=== PATIENT | male | born 1965 | race Caucasian/White ===

== ENCOUNTER 2017-03-22 09:57 | Day surgery (SDC) | payer BC ==
[2017-03-21 11:47] VITALS: BMI 30.2
[2017-03-22] MEDS ORDERED: MIDAZOLAM HCL 2 MG/2 ML SINGLE DOSE VIAL ONE (10:44)
[2017-03-22] MEDS ORDERED: LIDOCAINE HCL/PF 2% SDV 5ML VIAL ONE (10:44)
[2017-03-22] MEDS ORDERED: PROPOFOL 20 ML ONE (10:44)
[2017-03-22] MEDS ORDERED: DEXAMETHASONE SOD PHOSPHATE 4 MG/1 ML VIAL ONE ×2 (11:14→11:51)
[2017-03-22] MEDS ORDERED: ceFAZolin SODIUM 1 GM VIAL IVPB ONE (11:18)
[2017-03-22] MEDS ORDERED: ceFAZolin SODIUM 1 GM VIAL ONE (11:18)
[2017-03-22] MEDS ORDERED: IOHEXOL 300 MG/ML INFUS..BTL IV ONE (11:30)
[2017-03-22] MEDS ORDERED: oxyCODONE HCL 5 MG TABLET PO PRN (12:06)
[2017-03-22] MEDS ORDERED: PROMETHAZINE HCL 25 MG/1 ML VIAL IVPUSH PRN (12:06)
[2017-03-22] MEDS ORDERED: ACETAMINOPHEN 1000 MG/100 ML VIAL (NON FORMULARY) IVPB ONE (12:07)
[2017-03-22] MEDS ORDERED: KETOROLAC TROMETHAMINE 30 MG/1 ML VIAL IVPUSH ONE (12:07)
--- NOTE | 2017-03-22 12:09 | OP ---
Operative Note - Note: Operative Date: 03/22/17 Pre-Operative Diagnosis: R/O renal pelvic tumor Operation: Left ureteroscopy Renal pelvic biopsy stent placement Findings: Left renal pelvic TCC Post-Operative Diagnosis: Same as Pre-op Surgeon: Garry Murrieta MD. Anesthesia: General Specimens Removed: Left renal pelvic biopsy Estimated Blood Loss (mls): 10 Drains & Tubes with Location: 22 cm 6 fr DJ stent Operative Report Dictated: Yes
[2017-03-22] MEDS ORDERED: LACTATED RINGERS SOLUTION 1,000 ML IV SCH (12:15)
[2017-03-22] MEDS ORDERED: oxyCODONE HCL 5 MG TABLET ONE (13:38)
[2017-03-22 18:10] VITALS: BP 122/85; PULSE 68; TEMP 97.8
--- NOTE | 2017-03-24 14:15 | PATH ---
Surgical Pathology Report Patient Name: DORY GLASS Med. Rec. #: [id number] /Age/Gender: 1965 (Age: 51) / M Account: [id number] Location: [facility] Taken: 03/22/2017 Received: 03/22/2017 Reported: 03/24/2017 Physicians: Garry Murrieta M.D. Specimen(s) Received LEFT RENAL PELVIS BIOPSY Clinical History Rule out left ureteral tumor/bladder tumor Final Diagnosis RENAL PELVIS, LEFT, BIOPSIES: HYPERPLASTIC UROTHELIAL MUCOSA (SEE COMMENT). Comment: [facility] [place] [place] [place] ([id number] and interpreted at [facility] show following: The urothelium is diffusely positive for CD44 immunostain and negative for CK20; p53 shows weak nonspecific staining; Ki67 proliferation rate is low. 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 Clinical correlations and follow up are suggested. Also refer to [id number]. Electronically Signed Blake Guo M.D. Gross Description Received in formalin, labeled "left renal pelvis biopsies" are two grande, irregular portions of soft tissue measuring 0.1 cm in aggregate dimension. The specimen is submitted in toto in one cassette. [facility]/03/22/2017 [facility]03/22/2017
--- NOTE | 2017-03-24 14:16 | PATH ---
Cytology Non-Gynecological Report Patient Name: DORY GLASS [facility]. Rec. #: [id number] /Age/Gender: 1965 (Age: 51) / M Account: [id number] Location: [facility] Taken: 03/22/2017 Received: 03/22/2017 Reported: 03/24/2017 Physicians: Garry Murrieta M.D. Specimen(s) Received BLADDER URINE Clinical History Rule out left ureteral tumor/ bladder tumor Final Diagnosis BLADDER URINE FOR CYTOLOGY: SATISFACTORY FOR EVALUATION. NO MALIGNANT CELLS IDENTIFIED. REACTIVE UROTHELIAL CELLS WITH DEGENERATION. INFLAMMATORY CELLS. RED BLOOD CELLS. Electronically Signed Blake Guo M.D. Gross Description Received is 50 cc of yellow-brown fluid fresh. Two cytofunnel slides are made.
--- NOTE | 2017-03-24 14:16 | PATH ---
Cytology Non-Gynecological Report Patient Name: DORY GLASS [facility]. Rec. #: [id number] /Age/Gender: 1965 (Age: 51) / M Account: [id number] Location: [facility] Taken: 03/22/2017 Received: 03/22/2017 Reported: 03/24/2017 Physicians: Garry Murrieta M.D. Specimen(s) Received LEFT RENAL WASHINGS Clinical History Rule out left ureter tumor/bladder tumor Final Diagnosis LEFT RENAL WASHINGS: SATISFACTORY FOR EVALUATION. CLUSTERS OF UROTHELIAL CELLS PRESENT. NUMEROUS RED BLOOD CELLS. Comment: Clusters of urothelial cells may be seen as a result of inflammation, instrumentation, stones and low grade urothelial carcinoma. No significant cytological atypia is seen. Clinical correlations and follow up are suggested. Also refer to [id number]. Electronically Signed Blake Guo M.D. Gross Description Received is 10 cc of reddish fluid fresh. Two cytofunnel slides are made.
--- NOTE | 2017-03-24 14:27 | OP ---
DATE OF OPERATION: 03/22/2017 HISTORY: This is a 51-year-old gentleman with a prior history of TCC of the bladder. Patient was noted to have gross hematuria with on prior cystoscopy as well noted to have blood emanating from the left ureteral orifice. Preoperative imaging with and without contrast CAT scan was obtained which was suspicious for inflammation and possible tumor of the left renal pelvis. After discussing treatment options with the patient, as well as risks and benefits, the patient was to undergo ureteroscopy. He elected to undergo the procedure. PREOPERATIVE DIAGNOSIS: Rule out left transitional cell carcinoma of the renal pelvis. POSTOPERATIVE DIAGNOSIS: Rule out left transitional cell carcinoma of the renal pelvis. PROCEDURE: Left ureteroscopy, renal pelvic biopsy, and stent placement. DESCRIPTION OF OPERATION: Patient was brought into the operating room, placed in supine position. Once general anesthesia was administered, the patient was transferred to dorsal lithotomy position, prepped and draped in standard sterile fashion. Intravenous antibiotics were given. At this time, a 22-[place] cystoscope sheath was placed in the bladder under direct vision. No urethral strictures. The bladder was free of tumor. The left ureteral orifice was displaced more cephalad and lateral. A 0.038 guidewire was passed into the renal pelvis. A flexible ureteroscope was passed over the wire. The entire collecting system was inspected on the left side. There was a papillary and sessile lesion within the renal pelvis just prior to the UPJ. Several pieces of tissue were obtained using a [place] biopsy forcep. The wire was then placed through the scope. A 6-[place] 22-cm double-J stent was then passed over the wire fluoroscopically, being confirmed to be in normal position. Cytology was sent from both the bladder and from the renal pelvis. The patient was brought to the recovery room in satisfactory condition. Ingrid [id number]
== END 2017-03-22 16:30 | disposition home or self-care (01) ==
LOC: JASU-SURG 09:57
PROVIDERS: ATTEND Urology
PROC: 0TB48ZX Excision of Left Kidney Pelvis, Via Natural or Artificial Opening Endoscopic, Diagnostic (ICD-10-PCS; principal; 2017-03-22 11:00)
PROC: 0T7D8DZ Dilation of Urethra with Intraluminal Device, Via Natural or Artificial Opening Endoscopic (ICD-10-PCS; 2017-03-22 11:00)
DX: D30.12 Benign neoplasm of left renal pelvis (principal); Z85.51 Personal history of malignant neoplasm of bladder
CPT/HCPCS: 88108; 88300-TC; 94760